=== PATIENT | female | born 1990 | race African-American/Black ===

== ENCOUNTER 2019-07-05 00:51 | Outpatient (CLI) | payer OTHER | END 2019-07-05 00:52 | disposition critical access hospital (66) | LOC: EMS 00:51 | PROVIDERS: ATTEND Surgery | DX: R46.89 Other symptoms and signs involving appearance and behavior (principal); F41.9 Anxiety disorder, unspecified | CPT/HCPCS: A0425; A0429 ==

== ENCOUNTER 2019-07-05 01:08 | Emergency (ER) | payer OTHER ==
[2019-07-05 01:45] LABS: BILIRUBIN,URINE NEGATIVE (NEGATIVE); GLUCOSE, URINE (UA) NEGATIVE (NEGATIVE); KETONES,URINE (UA) NEGATIVE (NEGATIVE); LEUKOCYTE ESTERASE, URINE TRACE (NEGATIVE); MUDS CUTOFF CONCENTRATIONS CUTOFF CONC BELOW:; NITRITE,URINE NEGATIVE (NEGATIVE); OCCULT BLOOD,URINE TRACE-LYSE (NEGATIVE); PH,URINE 5.5 PH (5.0-7.5); PROTEIN,URINE TRACE mg/dL (NEGATIVE); UROBILINOGEN,URINE 0.2 (NORMAL) E.U./dL (NORMAL)
[2019-07-05 01:47] LABS: CLARITY,URINE CLEAR (CLEAR)
[2019-07-05 01:48] LABS: HCG UR QUAL NEGATIVE
[2019-07-05 01:51] LABS: RBC,URINE 0-5 /HPF (0-5)
[2019-07-05 01:52] LABS: BACTERIA,URINE Rare /HPF (None Seen); SQUAMOUS EPITHELIAL CELL,UR MANY Squamous (<= Few)
[2019-07-05 03:00] LABS: AMPHETAMINE SCREEN,URINE NEGATIVE (NEGATIVE); BENZODIAZEPINES SCREEN, URINE NEGATIVE (NEGATIVE); COCAINE SCREEN URINE NEGATIVE (NEGATIVE); METHADONE SCREEN, URINE NEGATIVE (NEGATIVE); METHAMPHETAMINES SCREEN, URINE NEGATIVE (NEGATIVE); OPIATE SCREEN, URINE NEGATIVE (NEGATIVE); OXYCODONE SCREEN, URINE NEGATIVE (NEGATIVE); PROPOXYPHENE SCREEN, URINE NEGATIVE (NEGATIVE); TRICYCLIC ANTIDEPRESSANT,URINE NEGATIVE (NEGATIVE)
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
[2019-07-05] MEDS ORDERED: LORazepam 2 MG/ML VIAL ONE (03:19)
[2019-07-05] MEDS ORDERED: LORazepam 2 MG/ML VIAL IVP STA (03:27)
[2019-07-05] MEDS ORDERED: KETOROLAC 30 MG/ML VIAL IVP STA (03:27)
[2019-07-05 03:34] LABS: BASOPHILS # (AUTO) 0.1 10^3/uL (0.0-0.1); BASOPHILS % (AUTO) 0.8 %; EOSINOPHILS % (AUTO) 0.2 %; HGB - HEMOGLOBIN 15.1 g/dL (12.0-16.0); LYMPHOCYTES # (AUTO) 1.9 10^3/uL (1.5-3.5); LYMPHOCYTES % (AUTO) 19.3 %; MEAN CORPUSCULAR HEMOGLOBIN 28.2 pg (27.0-31.0); MEAN CORPUSCULAR HGB CONC 33.3 g/dL (32.0-36.0); MEAN CORPUSCULAR VOLUME 84.9 fL (81.0-99.0); MEAN PLATELET VOLUME 9.7 fL (7.9-10.8); MONOCYTES # (AUTO) 0.9 10^3/uL (0.0-1.0); MONOCYTES % (AUTO) 8.9 %; NEUTROPHILS % (AUTO) 70.4 %; PLT - PLATELET COUNT 332 10^3/uL (130-450); RED BLOOD COUNT 5.35 10^6/uL (4.20-5.40); RED CELL DISTRIBUTION WIDTH 12.5 % (12.0-15.0); WHITE BLOOD COUNT 9.9 x10^3/uL (4.8-10.8)
[2019-07-05 03:44] LABS: BILIRUBIN,TOTAL 0.5 mg/dL (0.2-1.0); CALCIUM 8.3 mg/dL (8.5-10.3); CREATININE 0.7 mg/dL (0.4-1.0)
--- NOTE | 2019-07-05 04:25 | XRAY Report ---
Reason: chest pain Procedure Date: 07/05/2019 Accession Number: [id number] / [id number] Procedure: XR - Chest 1 View X-Ray CPT Code: 26777 Final Report FULL RESULT: EXAM: CHEST RADIOGRAPHY EXAM DATE: 07/05/2019 03:49 AM. CLINICAL HISTORY: Chest pain. COMPARISON: None. TECHNIQUE: 1 view. FINDINGS: The mediastinal and cardiac silhouettes are normal. Low lung volumes are seen. The lungs are clear. No pleural effusion or pneumothorax is seen. The osseous structures are intact. IMPRESSION: Clear lungs. RADIA
[2019-07-05 06:31] VITALS: BP 91/64
== END 2019-07-05 08:12 | disposition home or self-care (01) ==
LOC: EDBD 01:08 → ED 01:08
DX: F10.929 Alcohol use, unspecified with intoxication, unspecified (principal); F41.9 Anxiety disorder, unspecified; R45.1 Restlessness and agitation; R07.9 Chest pain, unspecified; R00.0 Tachycardia, unspecified
CPT/HCPCS: 36415; 71045; 80053; 80320; 81001; 81025; 83690; 85025; 93005; 96374; 96375; 99281; 99284; J2060; 80306; 81003; 87086

== ENCOUNTER 2020-04-06 06:29 | Emergency (ER) | payer OTHER ==
--- NOTE | 2020-04-06 07:16 | ED Physician Documentation ---
PD HPI ABD PAIN - Stated complaint Stated Complaint: FEMALE - Chief complaint Chief Complaint: Abd Pain - History obtained from History obtained from: Patient - Additional information Additional information: 30-year-old woman about a month out from a laparoscopic myomectomy done at [facility]. Over the last week she has had progressively increasing vaginal bleeding. No current pelvic pain. She is going through about a pad an hour. Starting yesterday she developed some chest heaviness and this morning some diffuse left-sided numbness. She also complains of shortness of breath and dizziness and some anxiety. She has not been sexually active since the surgery. Review of Systems Ten Systems: 10 systems reviewed and negative Constitutional: reports: Fatigue Cardiac: reports: Chest pain / pressure. denies: Palpitations, Pedal edema, Calf pain Respiratory: reports: Dyspnea. denies: Cough PD PAST MEDICAL HISTORY - Past Medical History Psych: Anxiety - Past Surgical History Past Surgical History: No - Present Medications Home Medications: Ambulatory Orders Medication Instructions Recorded Confirmed DULoxetine [Cymbalta] 20 mg ORAL BID 04/06/20 04/06/20 Norgestimate-Ethinyl Estradiol 1 each PO TID #1 packet 04/06/20 [Ortho Tri-Cyclen 28 Tablet] traZODone [Desyrel] 50 mg ORAL HS 04/06/20 04/06/20 - Allergies Allergies/Adverse Reactions: Allergies Allergy/AdvReac Type Severity Reaction Status Date / Time No Known Drug Allergies Allergy Verified 04/06/20 06:48 - Social History Does the pt smoke?: No Smoking Status: Never smoker Does the pt drink ETOH?: Yes Does the pt have substance abuse?: No - Immunizations Immunizations are current?: No - POLST Patient has POLST: No PD ED PE NORMAL - Vitals Vital signs reviewed: Yes - General General: Alert and oriented X 3, No acute distress - HEENT HEENT: PERRL, EOMI - Neck Neck: Supple, no meningeal sign, No bony TTP - Cardiac Cardiac: RRR, No murmur - Respiratory Respiratory: No respiratory distress, Clear bilaterally - Abdomen Abdomen: Soft, Non tender - Back Back: No CVA TTP, No spinal TTP - Derm Derm: Normal color, Warm and dry - Extremities Extremities: No edema, No calf tenderness / cord - Neuro Neuro: Alert and oriented X 3, Normal speech Results - Vitals Vitals: Vital Signs - 24 hr 04/06/20 04/06/20 04/06/20 06:42 06:52 08:03 Temperature 36.1 C L 36.1 C L 36.9 C Heart Rate 77 77 60 Respiratory 20 20 16 Rate Blood Pressure 137/90 H 137/90 H 148/102 H O2 Saturation 100 100 100 Oxygen O2 Source Room air - EKG (time done) 0644 Rate: Rate (enter#) (64) Rhythm: NSR [place]: Normal Intervals: Normal [place] QRS: Low voltage Ischemia: Normal ST segments Computer interpretation: Agree with computer - Labs Labs: Laboratory Tests 04/06/20 04/06/20 04/06/20 07:18 07:18 07:18 WBC 4.8 RBC 4.61 Hgb 13.0 Hct 39.4 MCV 85.5 MCH 28.2 MCHC 33.0 RDW 12.8 Plt Count 228 MPV 9.5 Neut # (Auto) 2.5 Lymph # (Auto) 1.6 [place] # (Auto) 0.5 Eos # (Auto) 0.2 Baso # (Auto) 0.1 Absolute Nucleated RBC 0.00 Nucleated RBC % 0.0 Sodium 135 Potassium 3.4 L Chloride 103 Carbon Dioxide 24 Anion Gap 8.0 BUN 11 Creatinine 0.7 Estimated GFR (MDRD) 118 Glucose 114 H Calcium 8.1 L Urine Color Urine Clarity Urine pH Ur Specific [place] Urine Protein Urine Glucose (UA) Urine Ketones Urine Occult Blood Urine Nitrite Urine Bilirubin Urine Urobilinogen Ur Leukocyte Esterase Urine RBC Urine WBC Ur Squamous Epith Cells Urine Bacteria Ur Microscopic Review Urine Culture Comments Urine HCG, Qual Blood Type A NEGATIVE Antibody Screen NEGATIVE 04/06/20 08:00 WBC RBC Hgb Hct MCV MCH MCHC RDW Plt Count MPV Neut # (Auto) Lymph # (Auto) [place] # (Auto) Eos # (Auto) Baso # (Auto) Absolute Nucleated RBC Nucleated RBC % Sodium Potassium Chloride Carbon Dioxide Anion Gap BUN Creatinine Estimated GFR (MDRD) Glucose Calcium Urine Color DARK YELLOW Urine Clarity CLOUDY Urine pH 5.5 Ur Specific [place] 1.025 Urine Protein NEGATIVE Urine Glucose (UA) NEGATIVE Urine Ketones NEGATIVE Urine Occult Blood LARGE H Urine Nitrite NEGATIVE Urine Bilirubin NEGATIVE Urine Urobilinogen 0.2 (NORMAL) Ur Leukocyte Esterase TRACE H Urine RBC TNTC H Urine WBC 0-3 Ur Squamous Epith Cells FEW Squamous Urine Bacteria Few Ur Microscopic Review INDICATED Urine Culture Comments INDICATED Urine HCG, Qual NEGATIVE Blood Type Antibody Screen PD MEDICAL DECISION MAKING - ED course ED course: 30-year-old woman status post laparoscopic myomectomy for fibroid uterus presents with worsening vaginal bleeding and now some chest pain dizziness and shortness of breath. No clinical evidence of heart or lung disease, EKG is unremarkable. Ultrasound shows persistent fibroids and a small amount of free fluid. Case discussed by phone with on-call gynecology, Dr. Collins who recommends 3 times daily control and follow-up in the clinic. Departure - Departure Disposition: Home, Self Care Clinical Impression: Vaginal bleeding Fibroid uterus Qualifiers: Uterine leiomyoma location: unspecified location Qualified Code(s): D25.9 - Leiomyoma of uterus, unspecified Chest pain Qualifiers: Chest pain type: unspecified Qualified Code(s): R07.9 - Chest pain, unspecified Condition: Good Record reviewed to determine appropriate education?: Yes Instructions: ED Fibroids Prescriptions: Norgestimate-Ethinyl Estradiol [Ortho Tri-Cyclen 28 Tablet] 1 each PO TID #1 packet Comments: Follow-up with the operations and maintenance specialist as scheduled. When you have that appointment take the copy of the ultrasound on CD with you that we made today. Return for new or worsening symptoms.. Take the control 3 times a day until the bl eeding stops, then once a day to finish out the pack. Return if worsening.
[2020-04-06 07:34] LABS: BASOPHILS # (AUTO) 0.1 10^3/uL (0.0-0.1); EOSINOPHILS # (AUTO) 0.2 10^3/uL (0.0-0.7); EOSINOPHILS % (AUTO) 3.1 %; LYMPHOCYTES # (AUTO) 1.6 10^3/uL (1.5-3.5); MEAN CORPUSCULAR HEMOGLOBIN 28.2 pg (27.0-31.0); MEAN CORPUSCULAR VOLUME 85.5 fL (81.0-99.0); MEAN PLATELET VOLUME 9.5 fL (7.9-10.8); MONOCYTES # (AUTO) 0.5 10^3/uL (0.0-1.0); MONOCYTES % (AUTO) 9.7 %; NEUTROPHILS # (AUTO) 2.5 10^3/uL (1.5-6.6); NEUTROPHILS % (AUTO) 51.2 %; PLT - PLATELET COUNT 228 10^3/uL (130-450); RED BLOOD COUNT 4.61 10^6/uL (4.20-5.40); RED CELL DISTRIBUTION WIDTH 12.8 % (12.0-15.0); WHITE BLOOD COUNT 4.8 x10^3/uL (4.8-10.8)
[2020-04-06 07:37] LABS: CALCIUM 8.1 mg/dL (8.5-10.3); CREATININE 0.7 mg/dL (0.4-1.0)
[2020-04-06 08:16] LABS: BILIRUBIN,URINE NEGATIVE (NEGATIVE); GLUCOSE, URINE (UA) NEGATIVE (NEGATIVE); KETONES,URINE (UA) NEGATIVE (NEGATIVE); LEUKOCYTE ESTERASE, URINE TRACE (NEGATIVE); NITRITE,URINE NEGATIVE (NEGATIVE); OCCULT BLOOD,URINE LARGE (NEGATIVE); PH,URINE 5.5 PH (5.0-7.5); PROTEIN,URINE NEGATIVE (NEGATIVE); UROBILINOGEN,URINE 0.2 (NORMAL) E.U./dL (NORMAL)
[2020-04-06 08:19] LABS: CLARITY,URINE CLOUDY (CLEAR); HCG UR QUAL NEGATIVE
[2020-04-06 08:25] LABS: BACTERIA,URINE Few /HPF (None Seen); RBC,URINE TNTC /HPF (0-5); SQUAMOUS EPITHELIAL CELL,UR FEW Squamous (<= Few)
--- NOTE | 2020-04-06 08:44 | Ultrasound Report ---
PROCEDURE: Pelvic w/Doppler Complete INDICATIONS: Vag bleed, would avoid TV if poss d/t recent surg TECHNIQUE: Real-time scanning was performed of the pelvic organs, with image documentation. Additional endovagi nal scanning was declined by the patient COMPARISON: None. FINDINGS: Transabdominal scanning: Limited scanning through the kidneys shows no hydronephrosis. No pathologi c free abdominal or pelvic fluid. Endovaginal scanning: Uterus: Uterus is normal in size at 10.2 x 5.7 x 0.1 cm. The endometrium measures 9-10 mm in combin ed thickness. Left posterior subserosal fibroid measuring 3.3 x 2.8 x 2.5 cm. Ovaries: Right ovary measures 2.8 x 2.0 x 1.9 cm and demonstrates expected waveforms with Doppler in terrogation. The left ovary is not well seen. IMPRESSION: Uterine fibroid. Left ovary not sonographically visualized/evaluated. Reviewed by: Terence Vega MD on 04/06/2020 8:43 AM PST Approved by: Terence Vega MD on 04/06/2020 8:43 AM PST Station ID: [id number]
[2020-04-06 08:51] VITALS: BP 154/103
== END 2020-04-06 08:56 | disposition home or self-care (01) ==
LOC: ED 06:29
DX: D25.9 Leiomyoma of uterus, unspecified (principal); Z98.891 History of uterine scar from previous surgery; R07.9 Chest pain, unspecified
CPT/HCPCS: 36415; 80048; 81001; 81003; 81025; 85025; 86850; 86900; 86901; 87086; 93005; 93975; 99284; 99285

== ENCOUNTER 2020-09-27 09:56 | Outpatient (CLI) | payer OTHER | END 2020-09-27 09:57 | disposition EMS.NT | LOC: EMS 09:56 | DX: Z03.89 Encounter for observation for other suspected diseases and conditions ruled out (principal) ==

== ENCOUNTER 2020-09-27 11:13 | Emergency (ER) | payer OTHER ==
--- OUTSIDE RECORDS SUMMARY | 2020-09-27 11:48 | EXTERNAL MEDICAL SUMMARY RPT | Continuity of Care Document ---
:1990 Demographics Phone Unavailable Preferred Language Unknown Marital Status Unknown Pentecostalism Affiliation Unknown Race Unknown Ethnic Group Unknown Author Organization [facility] Address [address] [place] [address] Phone Allergies Encounters Medications Problems Results
--- NOTE | 2020-09-27 11:51 | XRAY Report ---
PROCEDURE: Chest 1 View X-Ray INDICATIONS: Chest pain TECHNIQUE: One view of the chest was acquired. COMPARISON: 07/05/2019 FINDINGS: Surgical changes and devices: None. Lungs and pleura: No pleural effusions or pneumothorax. Lungs are clear. Mediastinum: Mediastinal contours appear normal. Heart size is normal. Bones and chest wall: No suspicious bony lesions. Overlying soft tissues appear unremarkable. IMPRESSION: No acute cardiopulmonary process demonstrated radiographically. Reviewed by: Zay Sanders MD on 09/27/2020 11:49 AM PDT Approved by: Zay Sanders MD on 09/27/2020 11:49 AM PDT Station ID: [id number]
[2020-09-27 11:53] LABS: BASOPHILS % (AUTO) 0.6 %; EOSINOPHILS # (AUTO) 0.1 10^3/uL (0.0-0.7); EOSINOPHILS % (AUTO) 0.7 %; HCT - HEMATOCRIT 40.5 % (37.0-47.0); HGB - HEMOGLOBIN 13.6 g/dL (12.0-16.0); LYMPHOCYTES # (AUTO) 1.2 10^3/uL (1.5-3.5); LYMPHOCYTES % (AUTO) 16.3 %; MEAN CORPUSCULAR HGB CONC 33.6 g/dL (32.0-36.0); MEAN CORPUSCULAR VOLUME 83.3 fL (81.0-99.0); MEAN PLATELET VOLUME 9.1 fL (7.9-10.8); MONOCYTES # (AUTO) 0.7 10^3/uL (0.0-1.0); MONOCYTES % (AUTO) 9.7 %; NEUTROPHILS # (AUTO) 5.2 10^3/uL (1.5-6.6); NEUTROPHILS % (AUTO) 72.4 %; PLT - PLATELET COUNT 307 10^3/uL (130-450); RED BLOOD COUNT 4.86 10^6/uL (4.20-5.40); RED CELL DISTRIBUTION WIDTH 14.4 % (12.0-15.0); WHITE BLOOD COUNT 7.2 x10^3/uL (4.8-10.8)
[2020-09-27 12:15] LABS: ALBUMIN/GLOBULIN RATIO 1.1 (1.0-2.2); BILIRUBIN,TOTAL 0.7 mg/dL (0.2-1.0); CREATININE 0.8 mg/dL (0.4-1.0); POTASSIUM 3.5 mmol/L (3.5-5.0); TOTAL PROTEIN 7.8 g/dL (6.7-8.2)
--- NOTE | 2020-09-27 12:50 | ED Physician Documentation ---
PD HPI CHEST PAIN - Stated complaint Stated Complaint: SOA,CP,N/V - Chief complaint Chief Complaint: Cardiac - History obtained from History obtained from: Patient - Additional information Additional information: Pt comes to the ED with CC of substernal CP and pressure on and off for the past several days. Pt states she has a h/o anxiety, but no known cardiac problems. She states she has had some stress lately, but no major events. Pt states that when she got to work, she began to feel the heaviness, and ultimately decided to leave and come here. She denies any relation to exertion. No associated nausea, but pt did begin to feel anxious and began breathing harder. Pt denies h/o DM, smoking, or HTN. No FH of NH/CAD at a young age. No LE swelling. Review of Systems Ten Systems: 10 systems reviewed and negative Constitutional: reports: Reviewed and negative Eyes: reports: Reviewed and negative Ears: reports: Reviewed and negative Nose: reports: Reviewed and negative Throat: reports: Reviewed and negative Cardiac: reports: Chest pain / pressure Respiratory: reports: Dyspnea GI: reports: Reviewed and negative : reports: Reviewed and negative Skin: reports: Reviewed and negative Musculoskeletal: reports: Reviewed and negative Neurologic: reports: Reviewed and negative Psychiatric: reports: Anxiety Endocrine: reports: Reviewed and negative Immunocompromised: reports: Reviewed and negative PD PAST MEDICAL HISTORY - Past Medical History Past Medical History: Yes Cardiovascular: None Respiratory: None Neuro: None Endocrine/Autoimmune: None GI: None NET TRAINER: Fibroids : None HEENT: None Psych: Anxiety, Panic attacks Musculoskeletal: None Derm: None - Past Surgical History Past Surgical History: No /NET TRAINER: Other - Present Medications Home Medications: Ambulatory Orders Medication Instructions Recorded Confirmed DULoxetine [Cymbalta] 20 mg ORAL BID 04/06/20 09/27/20 traZODone [Desyrel] 50 mg ORAL HS 04/06/20 09/27/20 DULoxetine [Cymbalta] 30 mg PO BID #60 09/27/20 - Allergies Allergies/Adverse Reactions: Allergies Allergy/AdvReac Type Severity Reaction Status Date / Time No Known Drug Allergies Allergy Verified 09/27/20 11:20 - Social History Does the pt smoke?: No Smoking Status: Never smoker Does the pt drink ETOH?: Yes Does the pt have substance abuse?: No - Immunizations Immunizations are current?: Yes - POLST Patient has POLST: No PD ED PE NORMAL - Vitals Vital signs reviewed: Yes - General General: Alert and oriented X 3, No acute distress, Well developed/nourished, Other (Pt is tearful, but calm.) - HEENT HEENT: Atraumatic, PERRL, EOMI, Moist mucous membranes - Neck Neck: Supple, no meningeal sign - Cardiac Cardiac: RRR, No murmur, Strong equal pulses - Respiratory Respiratory: No respiratory distress, Clear bilaterally - Abdomen Abdomen: Soft, Non tender, Non distended - Derm Derm: Normal color, Warm and dry, No rash - Extremities Extremities: No deformity, No edema, No calf tenderness / cord - Neuro Neuro: Alert and oriented X 3, mediation commissioner 2-12 intact, Normal speech, Other (grossly normal) - Psych Psych: Other (tearful, mildly anxious.) Results - Vitals Vitals: Oxygen O2 Source Room air - EKG (time done) 1119 Rate: Rate (enter#) (67) Rhythm: NSR [place]: Normal Intervals: Normal [place] QRS: Normal Ischemia: Normal ST segments Compare to prior EKG: Old EKG unavailable Computer interpretation: Agree with computer - Labs Labs: Laboratory Tests 09/27/20 09/27/20 09/27/20 11:48 11:48 11:48 WBC 7.2 RBC 4.86 Hgb 13.6 Hct 40.5 MCV 83.3 MCH 28.0 MCHC 33.6 RDW 14.4 Plt Count 307 MPV 9.1 Neut # (Auto) 5.2 Lymph # (Auto) 1.2 L [place] # (Auto) 0.7 Eos # (Auto) 0.1 Baso # (Auto) 0.0 Absolute Nucleated RBC 0.00 Nucleated RBC % 0.0 Sodium 136 Potassium 3.5 Chloride 99 L Carbon Dioxide 26 Anion Gap 11.0 BUN 9 Creatinine 0.8 Estimated GFR (MDRD) 101 Glucose 119 H Calcium 9.0 Total Bilirubin 0.7 AST 30 ALT 32 Alkaline Phosphatase 62 Troponin I High Sens 3.6 Total Protein 7.8 Albumin 4.0 Globulin 3.8 Albumin/Globulin Ratio 1.1 Lipase 31 - Rads (name of study) CXR Radiology: Final report received, EMP read indepedently, See rad report (neg) PD MEDICAL DECISION MAKING - ED course Complexity details: reviewed results, re-evaluated patient, considered differential, d/w patient ED course: Pt was very low-risk for CAD, and I did not find evidence of any other emergent condition on labs, EKG, or CXR. Pt declined medication in the ED. We have discussed her anxiety, and the need to follow up with her PCP if episodes contin ue. We have discussed the usual indications for return. Departure - Departure Disposition: 01 Home, Self Care Clinical Impression: Anxiety Chest pain Qualifiers: Chest pain type: unspecified Qualified Code(s): R07.9 - Chest pain, unspecified Condition: Stable Instructions: ED Chest Pain NonCardiac Prescriptions: DULoxetine [Cymbalta] 30 mg PO BID #60 Forms: Activity restrictions Discharge Date/Time: 09/27/20 13:15
[2020-09-27 13:13] VITALS: BP 134/98
== END 2020-09-27 13:15 | disposition home or self-care (01) ==
LOC: EDUNIT# → ED 11:13
DX: R07.89 Other chest pain (principal); F41.9 Anxiety disorder, unspecified
CPT/HCPCS: 36415; 80053; 83690; 84484; 85025; 93005; 99283; 99284

== ENCOUNTER 2021-04-26 07:49 | Emergency (ER) | payer OTHER ==
[2021-04-26] MEDS ORDERED: KETOROLAC 15 MG/ML VIAL IVP STA (08:00)
[2021-04-26 08:01] VITALS: BP 143/100
--- NOTE | 2021-04-26 08:02 | ED Physician Documentation ---
PD HPI CHEST PAIN - Stated complaint Stated Complaint: CP/ANXIETY - History obtained from History obtained from: Patient - Additional information Additional information: 31-year-old woman with history of anxiety presents this morning with chest pain and anxiety. She woke from sleep and was shaking and after a few minutes of shaking got out of bed and was hyperventilating and ended up collapsing to the ground but without loss of consciousness with pleuritic chest pain much worse with deep breathing or palpation. Is a diffuse pain across the chest. Is associated with anxiety and shortness of breath. No recent travel. No possibility of . No calf pain or pedal edema. She has a history of PTSD and anxiety, but no serious medical issues. Review of Systems Ten Systems: 10 systems reviewed and negative Constitutional: denies: Fever, Chills Cardiac: reports: Chest pain / pressure. denies: Palpitations Respiratory: reports: Dyspnea. denies: Cough PD PAST MEDICAL HISTORY - Past Medical History Cardiovascular: None Respiratory: None Neuro: None Endocrine/Autoimmune: None GI: None [employer]: Fibroids : None HEENT: None Psych: Anxiety, Panic attacks Musculoskeletal: None Derm: None - Past Surgical History Past Surgical History: No /[employer]ESS [employer]DER: Other - Present Medications Home Medications: Ambulatory Orders Medication Instructions Recorded Confirmed DULoxetine [Cymbalta] 20 mg ORAL BID 04/06/20 09/27/20 traZODone [Desyrel] 50 mg ORAL HS 04/06/20 09/27/20 DULoxetine [Cymbalta] 30 mg PO BID #60 09/27/20 LORazepam [Ativan] 1 mg PO HS #3 tablet 04/26/21 - Allergies Allergies/Adverse Reactions: Allergies Allergy/AdvReac Type Severity Reaction Status Date / Time No Known Drug Allergies Allergy Verified 04/26/21 08:01 - Social History Does the pt smoke?: No Smoking Status: Never smoker Does the pt drink ETOH?: Yes Does the pt have substance abuse?: No - Immunizations Immunizations are current?: Yes - POLST Patient has POLST: No PD ED PE NORMAL - Vitals Vital signs reviewed: Yes - General General: Alert and oriented X 3, Other (She appears anxious) - HEENT HEENT: PERRL, EOMI - Neck Neck: Supple, no meningeal sign, No bony TTP - Cardiac Cardiac: RRR, No murmur, Other (Diffuse anterior chest wall tenderness) - Respiratory Respiratory: No respiratory distress, Clear bilaterally - Abdomen Abdomen: Normal bowel sounds, Soft, Non tender - Back Back: No CVA TTP, No spinal TTP - Derm Derm: Normal color, Warm and dry - Extremities Extremities: No edema, No calf tenderness / cord - Neuro Neuro: Alert and oriented X 3, Normal speech Results - Vitals Vitals: Vital Signs - 24 hr 04/26/21 04/26/21 07:53 08:08 Heart Rate 74 79 Respiratory 17 18 Rate Blood Pressure 143/100 H O2 Saturation 100 99 Oxygen O2 Source Room air - EKG (time done) 0816 Rate: Rate (enter#) (68) Rhythm: NSR Hermon: Normal Intervals: Normal PA QRS: Normal Ischemia: Non specific changes (Flat precordial T waves, no change from previous EKG dated September 27, 2020) - Labs Labs: Laboratory Tests 04/26/21 04/26/21 04/26/21 08:22 08:22 08:22 WBC 5.5 RBC 4.94 Hgb 13.9 Hct 40.8 MCV 82.6 MCH 28.1 MCHC 34.1 RDW 13.3 Plt Count 306 MPV 9.1 Neut # (Auto) 3.2 Lymph # (Auto) 1.4 L Amador # (Auto) 0.5 Eos # (Auto) 0.3 Baso # (Auto) 0.1 Absolute Nucleated RBC 0.00 Nucleated RBC % 0.0 VBG pH VBG pCO2 VBG pO2 VBG HCO3 VBG Total CO2 VBG O2 Saturation VBG Base Excess Sodium 137 Potassium 3.5 Chloride 104 Carbon Dioxide 23 Anion Gap 10.0 BUN 10 Creatinine 0.7 Estimated GFR (MDRD) 118 Glucose 119 H Calcium 8.7 Total Bilirubin 0.6 AST 36 ALT 45 Alkaline Phosphatase 73 Troponin I High Sens 3.6 Total Protein 7.2 Albumin 3.5 Globulin 3.7 Albumin/Globulin Ratio 0.9 L Lipase 44 04/26/21 08:22 WBC RBC Hgb Hct MCV MCH MCHC RDW Plt Count MPV Neut # (Auto) Lymph # (Auto) Amador # (Auto) Eos # (Auto) Baso # (Auto) Absolute Nucleated RBC Nucleated RBC % VBG pH 7.408 VBG pCO2 41.2 VBG pO2 64.7 H VBG HCO3 25.4 VBG Total CO2 26.7 VBG O2 Saturation 91.9 H VBG Base Excess 0.7 Sodium Potassium Chloride Carbon Dioxide Anion Gap BUN Creatinine Estimated GFR (MDRD) Glucose Calcium Total Bilirubin AST ALT Alkaline Phosphatase Troponin I High Sens Total Protein Albumin Globulin Albumin/Globulin Ratio Lipase - Rads (name of study) Single view chest x-ray is normal Radiology: EMP read contemporaneously PD MEDICAL DECISION MAKING - ED course ED course: 31-year-old woman presents with chest pain associated with anxiety. Her EKG is nonischemic and unchanged from prior. Heart score is zero. I considered pulmonary embolism in this patient. Clinically the pretest probability of pulmonary embolism is less than 15%. I applied to the PERC rules as follows: The patient's age is under 50, heart rate less than 100, oxygen saturation greater than 94%, the patient does not have a history of DVT or PE. Patient has no recent trauma or surgery. The patient has no hemoptysis. The patient is not on exogenous estrogens. The patient does not have clinical signs suggesting DVT. As such the patient ruled out for pulmonary embolism by PERC criteria. Evaluation after Toradol she was feeling better still with some intermittent chest pain but feeling a lot better. That said she had a significant involuntary jump reaction after a loud noise in the next room while we were talking. She notes difficulty sleeping lately and feeling stressed out at work. She wonders if she might need some medication adjustment and stopped her trazodone because of side effects. Departure - Departure Disposition: 01 Home, Self Care Clinical Impression: Anxiety Chest pain Qualifiers: Chest pain type: unspecified Qualified Code(s): R07.9 - Chest pain, unspecified Condition: Good Record reviewed to determine appropriate education?: Yes Instructions: ED Panic Attack Prescriptions: LORazepam [Ativan] 1 mg PO HS #3 tablet Comments: Talk with your doctor about medication adjustment given the problems you are having. Return for new or worsening symptoms. I sent your prescription electronically to [facility] [place] Forms: Activity restrictions
--- NOTE | 2021-04-26 08:19 | XRAY Report ---
PROCEDURE: Chest 1 View X-Ray INDICATIONS: Chest Pain TECHNIQUE: One view of the chest was acquired. COMPARISON: 09/27/2020 chest x-ray FINDINGS: Surgical changes and devices: None. Lungs and pleura: No pleural effusions or pneumothorax. Lungs are clear. Mediastinum: Mediastinal contours appear normal. Heart size is normal. Bones and chest wall: No suspicious bony lesions. Overlying soft tissues appear unremarkable. IMPRESSION: No acute process. Reviewed by: Philip Hobbs MD on 04/26/2021 8:18 AM [facility] Approved by: Philip Hobbs MD on 04/26/2021 8:18 AM [facility] Station ID: [id number]
[2021-04-26 08:27] LABS: BASOPHILS # (AUTO) 0.1 10^3/uL (0.0-0.1); BASOPHILS % (AUTO) 1.3 %; EOSINOPHILS # (AUTO) 0.3 10^3/uL (0.0-0.7); EOSINOPHILS % (AUTO) 4.8 %; HCT - HEMATOCRIT 40.8 % (37.0-47.0); HGB - HEMOGLOBIN 13.9 g/dL (12.0-16.0); LYMPHOCYTES # (AUTO) 1.4 10^3/uL (1.5-3.5); MEAN CORPUSCULAR HEMOGLOBIN 28.1 pg (27.0-31.0); MEAN CORPUSCULAR HGB CONC 34.1 g/dL (32.0-36.0); MEAN CORPUSCULAR VOLUME 82.6 fL (81.0-99.0); MEAN PLATELET VOLUME 9.1 fL (7.9-10.8); MONOCYTES # (AUTO) 0.5 10^3/uL (0.0-1.0); MONOCYTES % (AUTO) 9.5 %; NEUTROPHILS # (AUTO) 3.2 10^3/uL (1.5-6.6); NEUTROPHILS % (AUTO) 58.5 %; PLT - PLATELET COUNT 306 10^3/uL (130-450); RED BLOOD COUNT 4.94 10^6/uL (4.20-5.40); RED CELL DISTRIBUTION WIDTH 13.3 % (12.0-15.0); WHITE BLOOD COUNT 5.5 x10^3/uL (4.8-10.8)
[2021-04-26 08:46] LABS: VBG PH 7.408 (7.31-7.41)
[2021-04-26 08:47] LABS: VBG BASE EXCESS 0.7 mmol/L (-2 - +2); VBG HCO3 25.4 mmol/L (23-28); VBG OXYGEN SATURATION 91.9 % (60-80); VBG PCO2 41.2 mmHg (41-51); VBG PO2 64.7 mmHg (25-47); VBG TOTAL CO2 26.7 mmol/L (24-29)
[2021-04-26 08:48] LABS: ALBUMIN 3.5 g/dL (3.2-5.5); ALBUMIN/GLOBULIN RATIO 0.9 (1.0-2.2); BILIRUBIN,TOTAL 0.6 mg/dL (0.2-1.0); CALCIUM 8.7 mg/dL (8.5-10.3); CREATININE 0.7 mg/dL (0.4-1.0); POTASSIUM 3.5 mmol/L (3.5-5.0); TOTAL PROTEIN 7.2 g/dL (6.7-8.2)
== END 2021-04-26 09:56 | disposition home or self-care (01) ==
LOC: EDUNIT# → ED 07:49
DX: F41.9 Anxiety disorder, unspecified (principal); R07.89 Other chest pain; F43.10 Post-traumatic stress disorder, unspecified
CPT/HCPCS: 36415; 80053; 82803; 83690; 84484; 85025; 93005; 96374; 99284